=== PATIENT | male | born 1960 | race African-American/Black ===

== ENCOUNTER 2017-12-13 14:26 | Emergency (ER) | payer MEDICARE, MEDICAID ==
[~2017-12-13 14:26] MED LIST: AMLO-512 PO; DSS100 PO; FINA5TAB41 PO; FURO20 PO; INSLAN SQ; LINA5TAB PO; OMEP20 PO; QUET400T PO; TAMS0.4C32 PO; TIOT185 IH; TRAZ-186 PO
== END 2017-12-13 14:35 | disposition left against medical advice (07) ==
LOC: EMS 14:30
DX: M79.673 Pain in unspecified foot (principal); Z53.21 Procedure and treatment not carried out due to patient leaving prior to being seen by health care provider

== ENCOUNTER 2018-01-27 17:56 | Emergency (ER) | payer MEDICARE, OTHER ==
[~2018-01-27] VITALS: Ht 172.7 cm; Wt 108.6 kg
[~2018-01-27 17:56] MED LIST changes: +CANA100T PO; +FLUT16H NASAL; +METO-558 PO; -TRAZ-186 PO; +TRAZ-220 PO
[2018-01-27 18:06] VITALS: BP 158/90
[2018-01-27 18:19] LABS: GLUCOSE,POINT OF CARE 88 MG/DL (70-110)
[2018-01-27] MEDS ORDERED: FISH1CAP27 PO (18:59)
[2018-01-27] MEDS ORDERED: BACL10TA PO (18:59)
[2018-01-27] MEDS ORDERED: ALBU8.5H8 IH (18:59)
[2018-01-27] MEDS ORDERED: ACETAMINOPHEN 325 MG TABLET PO ONE (20:30)
[2018-01-27] MEDS ORDERED: PERTUSS(ACELL),DIPH,TET VAC/PF 0.5 ML VIAL IM ONE (20:45)
[2018-01-27] MEDS ORDERED: BACITRACIN 0.9 GM PACKET OINTMENT TP ONE (20:45)
== END 2018-01-27 21:30 | disposition home or self-care (01) ==
LOC: EMS 17:56
DX: S90.511A Abrasion, right ankle, initial encounter (principal); E11.9 Type 2 diabetes mellitus without complications; I10 Essential (primary) hypertension; F20.9 Schizophrenia, unspecified; Z88.6 Allergy status to analgesic agent; Z79.899 Other long term (current) drug therapy; V03.00XA Pedestrian on foot injured in collision with car, pick-up truck or van in nontraffic accident, initial encounter; Y93.89 Activity, other specified; Y92.488 Other paved roadways as the place of occurrence of the external cause; Y99.8 Other external cause status
CPT/HCPCS: 29515; 29540; 90471; 90715

== ENCOUNTER 2018-02-03 23:23 | Inpatient (IN) | payer MEDICARE, MEDICAID ==
[~2018-02-03] VITALS: Ht 170.2 cm; Wt 104.3 kg
[~2018-02-03 23:23] MED LIST changes: +ALBU8.5H8 IH; -AMLO-512 PO; +BACL10TA PO; -CANA100T PO; +FISH1CAP27 PO; -INSLAN SQ; -LINA5TAB PO; -QUET400T PO
[2018-02-04] MEDS ORDERED: ZOLPIDEM TARTRATE 10 MG TABLET PO PRN
[2018-02-04 00:35] LABS: AMPHET/METH SCREEN,URINE NEGATIVE (NEGATIVE); BARBITURATE SCREEN, URINE NEGATIVE (NEGATIVE); BENZODIAZEPINES SCREEN,URINE NEGATIVE (NEGATIVE); CANNABINOID SCREEN,URINE POSITIVE (NEGATIVE); COCAINE SCREEN,URINE NEGATIVE (NEGATIVE); METHADONE SCREEN, URINE NEGATIVE (NEGATIVE); OPIATE SCREEN,URINE NEGATIVE (NEGATIVE)
[2018-02-04 00:38] LABS: PHENCYCLIDINE SCREEN,URINE NEGATIVE (NEGATIVE)
[2018-02-04] MEDS ORDERED: DiphenhydrAMINE HCL 50 MG/ML VIAL IM ONE (01:00)
[2018-02-04] MEDS ORDERED: HALOPERIDOL LACTATE 5 MG/ML VIAL IM ONE (01:00)
[2018-02-04] MEDS ORDERED: KETOROLAC TROMETHAMINE 30 MG/ML VIAL IM ONE (01:00)
[2018-02-04] MEDS ORDERED: LORazepam 2 MG/ML VIAL IM ONE (01:00)
[2018-02-04] MEDS ORDERED: IBUPROFEN 400 MG TABLET PO PRN (08:45)
[2018-02-04] MEDS ORDERED: NICOTINE 14 MG/24 HOUR PATCH TD PRN (08:45)
[2018-02-04] MEDS ORDERED: MAG HYDROX/AL HYDROX/SIMETH ES 30 ML SUSPENSION UDCUP PO PRN (08:45)
[2018-02-04] MEDS ORDERED: LOPERAMIDE HCL 2 MG CAPSULE PO PRN (08:45)
[2018-02-04] MEDS ORDERED: CloNIDine HCL 0.1 MG TABLET PO PRN (08:45)
[2018-02-04] MEDS ORDERED: MAGNESIUM HYDROXIDE SUSPENSION 30 ML UDCUP PO PRN (08:45)
[2018-02-04] MEDS ORDERED: ONDANSETRON HCL 4 MG TABLET PO PRN (08:45)
[2018-02-04] MEDS ORDERED: DOCUSATE SODIUM 100 MG CAPSULE PO PRN (08:45)
[2018-02-04] MEDS ORDERED: PETROLATUM,WHITE 71 GM JELLY TP PRN (08:45)
[2018-02-04] MEDS ORDERED: GuaiFENesin/D-METHORPHAN [SUGAR-FREE] 200-20MG/10 ML SYRUP UDCUP PO PRN (08:45)
[2018-02-04] MEDS ORDERED: ALBUTEROL SULFATE HFA 90 MCG/PUFF 8 GM INHALER IH PRN (08:45)
[2018-02-04] MEDS ORDERED: ACETAMINOPHEN 325 MG TABLET PO PRN (08:45)
[2018-02-04 10:01] VITALS: BP 128/76
[2018-02-04] MEDS ORDERED: PNEUMOCOCCAL VACCINE POLYVALENT 0.5 ML VIAL [PPSV23] IM ONE (11:15)
[2018-02-04 11:55] LABS: GLUCOMETER DEV NAME(LOC) BV3N.; GLUCOSE,POINT OF CARE 121 MG/DL (70-110)
[2018-02-04 16:27] VITALS: BP 126/64
[2018-02-04] MEDS: LORazepam 2 MG TABLET PO PRN (16:27)
[2018-02-04] MEDS: HALOPERIDOL 5 MG TABLET PO PRN (16:27)
[2018-02-04 16:54] LABS: GLUCOMETER DEV NAME(LOC) BV3N.; GLUCOSE,POINT OF CARE 136 MG/DL (70-110)
[2018-02-04] MEDS: TraZODone HCL 100 MG TABLET PO SCH (20:22)
[2018-02-04] MEDS: QUEtiapine FUMARATE 300 MG TABLET PO SCH (20:22)
[2018-02-05 01:32] VITALS: BP 112/66
[2018-02-05 06:24] LABS: GLUCOMETER DEV NAME(LOC) BV3N.; GLUCOSE,POINT OF CARE 111 MG/DL (70-110)
[2018-02-05 08:43] LABS: EOSINOPHILS % (AUTO) 3.1 % (1.0-6.0); HEMATOCRIT 39.1 % (41-53); HEMOGLOBIN 12.8 g/dL (13.5-17.5); LYMPHOCYTES # (AUTO) 2.4 K/uL (1.0-4.8); LYMPHOCYTES % (AUTO) 27.7 % (22.0-44.0); MEAN CORPUSCULAR HEMOGLOBIN 27.1 pg (26.0-34.0); MEAN CORPUSCULAR HGB CONC 32.7 G/dL (31.0-37.0); MEAN CORPUSCULAR VOLUME 83 fL (80-100); MONOCYTES # (AUTO) 0.8 K/uL (0.1-1.0); MONOCYTES % (AUTO) 9.6 % (2.0-9.0); NEUTROPHILS # (AUTO) 5.2 K/uL (1.8-7.7); NEUTROPHILS % (AUTO) 58.6 % (40.0-70.0); PLATELET COUNT (AUTO) 236 K/uL (150-450); RED BLOOD CELL COUNT(AUTO) 4.71 MIL/uL (4.50-5.90); RED CELL DISTRIBUTION WIDTH 14.8 % (11.5-14.5)
[2018-02-05] MEDS: OMEGA-3/DHA/EPA/FISH OIL 1,000 MG CAPSULE PO SCH (08:56)
[2018-02-05] MEDS: OMEPRAZOLE 20 MG CAPSULE PO SCH (08:56)
[2018-02-05] MEDS: METOPROLOL SUCCINATE 50 MG ER TABLET PO SCH (08:56)
[2018-02-05] MEDS: TAMSULOSIN HCL 0.4 MG CAPSULE PO SCH (08:56)
[2018-02-05] MEDS: DOCUSATE SODIUM 100 MG CAPSULE PO SCH (08:56)
[2018-02-05] MEDS: FUROSEMIDE 20 MG TABLET PO SCH (08:56)
[2018-02-05 09:08] VITALS: BP 100/64
[2018-02-05 09:22] LABS: ALANINE AMINOTRANSFERASE 50 U/L (12-78); ALBUMIN 3.2 g/dL (3.4-5.0); ALKALINE PHOSPHATASE 53 U/L (46-116); ANION GAP 4 mmol/L (8-16); ASPARTATE AMINOTRANSFERASE 24 U/L (15-37); BILIRUBIN,TOTAL 0.3 mg/dL (0.1-1.0); CALCIUM, TOTAL 9.2 mg/dL (8.8-10.5); CARBON DIOXIDE 32 mmol/L (22-29); CHLORIDE 104 mmol/L (98-107); CHOL/HDL RATIO 2.4 (4.2-7.3); CHOLESTEROL 132 mg/dL (131-200); CREATININE 1.09 mg/dL (0.60-1.30); GLOMERULAR FILTR. RATE CALC > 60 mL/min (>60); GLUCOSE,RANDOM 129 mg/dL (70-110); HDL CHOLESTEROL 54 mg/dL (40-60); LDL CHOL (CALC.) 59 mg/dL (0-130); POTASSIUM 3.9 mmol/L (3.5-5.1); SODIUM SERUM 140 mmol/L (136-145); THYROID STIMULATING HORMONE 1.14 uIU/mL (0.36-3.74); TOTAL PROTEIN, SERUM 6.7 g/dL (6.4-8.2); TRIGLYCERIDES 93 mg/dL (15-150); UREA NITROGEN, BLOOD 13 mg/dL (7-18)
[2018-02-05 16:00] VITALS: BP 114/71
[2018-02-05] MEDS: LORazepam 2 MG TABLET PO PRN ×2 (16:33→23:03)
[2018-02-05] MEDS: QUEtiapine FUMARATE 300 MG TABLET PO SCH (20:35)
[2018-02-05] MEDS: TraZODone HCL 100 MG TABLET PO SCH (20:35)
[2018-02-06 03:51] VITALS: BP 106/74
[2018-02-06 06:29] LABS: GLUCOMETER DEV NAME(LOC) BV3N.; GLUCOSE,POINT OF CARE 114 MG/DL (70-110)
[2018-02-06 08:11] VITALS: BP 123/78
[2018-02-06] MEDS: OMEGA-3/DHA/EPA/FISH OIL 1,000 MG CAPSULE PO SCH (08:36)
[2018-02-06] MEDS: OMEPRAZOLE 20 MG CAPSULE PO SCH (08:36)
[2018-02-06] MEDS: DOCUSATE SODIUM 100 MG CAPSULE PO SCH (08:36)
[2018-02-06] MEDS: TAMSULOSIN HCL 0.4 MG CAPSULE PO SCH (08:36)
[2018-02-06] MEDS: METOPROLOL SUCCINATE 50 MG ER TABLET PO SCH (08:37)
[2018-02-06] MEDS: FUROSEMIDE 20 MG TABLET PO SCH (08:39)
[2018-02-06 14:25] LABS: GLUCOMETER DEV NAME(LOC) BV3N.; GLUCOSE,POINT OF CARE 124 MG/DL (70-110)
[2018-02-06] MEDS: LORazepam 2 MG TABLET PO PRN (16:44)
[2018-02-06] MEDS: HALOPERIDOL 5 MG TABLET PO PRN (16:44)
[2018-02-06 17:30] VITALS: BP 132/72
[2018-02-06] MEDS: QUEtiapine FUMARATE 300 MG TABLET PO SCH (20:50)
[2018-02-06] MEDS: TraZODone HCL 100 MG TABLET PO SCH (20:50)
[2018-02-06 21:04] LABS: GLUCOMETER DEV NAME(LOC) BV3N.; GLUCOSE,POINT OF CARE 108 MG/DL (70-110)
[2018-02-06 21:04] LABS: GLUCOMETER DEV NAME(LOC) BV3N.; GLUCOSE,POINT OF CARE 133 MG/DL (70-110)
[2018-02-07 01:59] VITALS: BP 114/66
[2018-02-07 06:49] LABS: GLUCOMETER DEV NAME(LOC) BV3N.; GLUCOSE,POINT OF CARE 118 MG/DL (70-110)
[2018-02-07] MEDS: OMEGA-3/DHA/EPA/FISH OIL 1,000 MG CAPSULE PO SCH (08:09)
[2018-02-07] MEDS: METOPROLOL SUCCINATE 50 MG ER TABLET PO SCH (08:09)
[2018-02-07] MEDS: OMEPRAZOLE 20 MG CAPSULE PO SCH (08:09)
[2018-02-07] MEDS: DOCUSATE SODIUM 100 MG CAPSULE PO SCH (08:09)
[2018-02-07] MEDS: FUROSEMIDE 20 MG TABLET PO SCH (08:09)
[2018-02-07 08:12] VITALS: BP 120/77
[2018-02-07] MEDS: TAMSULOSIN HCL 0.4 MG CAPSULE PO SCH (08:18)
[2018-02-07 11:39] LABS: GLUCOMETER DEV NAME(LOC) BV3N.; GLUCOSE,POINT OF CARE 103 MG/DL (70-110)
[2018-02-07 16:00] VITALS: BP 133/73
[2018-02-07 16:29] LABS: GLUCOMETER DEV NAME(LOC) BV3N.; GLUCOSE,POINT OF CARE 107 MG/DL (70-110)
[2018-02-07] MEDS: QUEtiapine FUMARATE 300 MG TABLET PO SCH (20:36)
[2018-02-07] MEDS: TraZODone HCL 100 MG TABLET PO SCH (20:36)
[2018-02-07 20:44] LABS: GLUCOMETER DEV NAME(LOC) BV3N.; GLUCOSE,POINT OF CARE 128 MG/DL (70-110)
[2018-02-08 02:02] VITALS: BP 130/81
[2018-02-08 06:44] LABS: GLUCOMETER DEV NAME(LOC) BV3N.; GLUCOSE,POINT OF CARE 120 MG/DL (70-110)
[2018-02-08 08:07] VITALS: BP 133/82
[2018-02-08] MEDS: TAMSULOSIN HCL 0.4 MG CAPSULE PO SCH (08:13)
[2018-02-08] MEDS: OMEPRAZOLE 20 MG CAPSULE PO SCH (08:13)
[2018-02-08] MEDS: MAGNESIUM SULFATE 454 GM BOX TP SCH ×2 (08:13→09:00)
[2018-02-08] MEDS: METOPROLOL SUCCINATE 50 MG ER TABLET PO SCH (08:13)
[2018-02-08] MEDS: FUROSEMIDE 20 MG TABLET PO SCH (08:13)
[2018-02-08] MEDS: LORazepam 2 MG TABLET PO PRN (08:13)
[2018-02-08] MEDS: OMEGA-3/DHA/EPA/FISH OIL 1,000 MG CAPSULE PO SCH (08:13)
[2018-02-08] MEDS: DOCUSATE SODIUM 100 MG CAPSULE PO SCH (09:17)
[2018-02-08] MEDS ORDERED: QUET300T2 PO (11:32)
[2018-02-08 12:00] LABS: GLUCOMETER DEV NAME(LOC) BV3N.; GLUCOSE,POINT OF CARE 99 MG/DL (70-110)
[2018-02-08] MEDS ORDERED: TAMS0.4C32 PO (12:06)
[2018-02-08] MEDS ORDERED: FURO-152 PO (12:08)
[2018-02-08] MEDS ORDERED: METO-558 PO (12:10)
[2018-02-08] MEDS ORDERED: TRAZ-220 PO (12:13)
== END 2018-02-08 12:45 | disposition home or self-care (01) | DRG 885 ==
LOC: EMS 23:24 → B3A 02-04 05:30
PROVIDERS: ADMIT Psychiatry & Neurology Psychiatry; ATTEND Psychiatry & Neurology Psychiatry
DX: F25.9 Schizoaffective disorder, unspecified (principal); I50.32 Chronic diastolic (congestive) heart failure; N40.0 Benign prostatic hyperplasia without lower urinary tract symptoms; I11.0 Hypertensive heart disease with heart failure; E11.9 Type 2 diabetes mellitus without complications; E78.5 Hyperlipidemia, unspecified; G47.00 Insomnia, unspecified; J44.9 Chronic obstructive pulmonary disease, unspecified; K21.9 Gastro-esophageal reflux disease without esophagitis; M79.604 Pain in right leg; M79.89 Other specified soft tissue disorders; Z78.1 Physical restraint status; Z91.14 Patient's other noncompliance with medication regimen
CPT/HCPCS: 83036; 84443; 96372; J1200; J1630; J1885; J2060